=== PATIENT | female | born 1960 | race American Indian/Alaskan Native ===

== ENCOUNTER 2017-06-03 10:12 | Emergency (ER) | payer OTHER ==
[2017-06-03 10:20] VITALS: BP 171/95
--- NOTE | 2017-06-03 11:20 | Emergency Department Report ---
Upper Extremity - [facility] Chief Complaint: Extremity Injury, Upper Stated Complaint: LEFT ARM PAIN Time Seen by Provider: 06/03/17 11:02 Upper Extremity: Left Shoulder (pain to left shoulder which is chronic. Flared up 3-4 days ago.) Occurred When: 4 Days Mechanism: Unsure Severity: moderate (6-10) Symptoms: Yes Pain with Movement (left shoulder), No Deformity, No Limited Range of Movement (full range of motion to left shoulder), No Numbness, No Weakness, No Swelling, No Bruising/Ecchymosis, No Laceration or Abrasion Other History: Patient here reports that she is having left shoulder pain for 4 days. She says she has a history of chronic shoulder pain and she is supposed to be following up with her orthopedic doctor but has not had any time to follow -up. She said when she woke up this morning her pain was 6 out of 10 but now it does not hurt in its more sore. Denies any numbness or tingling into extremities. Pain worse with movement better with rest. Denies any fever or chills or any new injuries ED Review of Systems ROS: Stated complaint: LEFT ARM PAIN Other details as noted in HPI Comment: All other systems reviewed and negative Constitutional: no symptoms reported Respiratory: no symptoms reported Cardiovascular: denies: chest pain, palpitations, dyspnea on exertion, edema, syncope, paroxysmal nocturnal dyspnea Gastrointestinal: denies: abdominal pain, nausea, vomiting, diarrhea Genitourinary: denies: urgency, dysuria, frequency, hematuria, discharge Musculoskeletal: arthralgia. denies: back pain, joint swelling, myalgia Skin: denies: rash Neurological: denies: headache, numbness, paresthesias, confusion, abnormal gait , vertigo ED Past Medical Hx - Past Medical History Previous Medical History?: Yes Hx Hypertension: Yes - Surgical History Past Surgical History?: No - Family History Family history: no significant - Social History Smoking Status: Never Smoker Substance Use Type: None - Medications Home Medications: Home Medications Medication Instructions Recorded Confirmed Last Taken Type HYDROcodone/APAP 5-325 [[place] 1 each PO Q6HR PRN #14 tablet 07/28/13 Unknown Rx 5-325 mg TAB] Nitrofurantoin Forrest/M-Cryst 100 mg PO Q12HR #10 capsule 07/28/13 Unknown Rx [Macrobid CAP] traMADol [Ultram] 50 mg PO Q6HR PRN #20 tablet 06/03/17 Unknown Rx Upper Extremity Exam - Exam General: Vital signs noted. No distress. Alert and acting appropriately. This is a 57-year-old female well-nourished well-developed in no acute distress Head and Torso: No HEENT Abnormality, No Neck Tenderness, No Chest/Lungs Abnormality, No Abdominal Tenderness, No Back Tenderness Shoulder Exam: Yes Normal Range of Motion in Shoulder (No restriction in movement to all extremities.), No Shoulder Tenderness, No Clavicle Tenderness, No Shoulder Deformity, No AC Joint Tenderness Arm Exam: No Arm/Humerus Tenderness, No Arm Deformity Elbow: Yes Normal Range of Motion in Elbow, No Elbow Tenderness, No Elbow Deformity Forearm: No Forearm Tenderness, No Forearm Deformity, No Pain with Pronation, No Pain with Supination Wrist: Yes Normal ROM in Wrist, No Wrist Tenderness, No Wrist Deformity, No Snuffbox Tenderness, No Pain with Axial Thumb Compression Hand: Yes Normal ROM in Digit(s), No Hand Tenderness, No Hand Deformity, No Digit Tenderness, No Digit(s) Deformity, No Tendon Dysfunction CMS Exam: Yes Normal Distal Pulses, Yes Normal Capillary Refill, Yes Normal Distal Sensation, No Broken Skin ED Course Vital Signs 06/03/17 10:16 Temperature 98.9 F Pulse Rate 103 H Respiratory 20 Rate Blood Pressure 171/95 O2 Sat by Pulse 98 Oximetry Vital Signs 06/03/17 06/03/17 10:16 11:32 Temperature 98.9 F Pulse Rate 103 H Respiratory 20 16 Rate Blood Pressure 171/95 O2 Sat by Pulse 98 Oximetry Vital Signs 06/03/17 06/03/17 06/03/17 10:16 11:32 12:15 Temperature 98.9 F Pulse Rate 103 H 92 H Respiratory 20 16 Rate Blood Pressure 171/95 O2 Sat by Pulse 98 Oximetry - Reevaluation(s) Reevaluation #1: 06/03/17 12:59 Given Decadron 10 mg IM and Toradol 60 mg IM in emergency room. ED Medical Decision Making - Medical Decision Making ED course: The patient that she has chronic shoulder pain and will need to followed by orthopedic doctor for Evaluation and management. Patient has no deformity or limitation in movement to both shoulders. He has no erythema or effusion. No crepitus noted. She has +2 pulses in all extremities. He received Decadron 10 mg IM and Toradol 60 mg IM in emergency room relief of pain. Discharged home in stable condition with prescription for Ultram and to follow up with orthopedic doctor. Critical care attestation.: If time is entered above; I have spent that time in minutes in the direct care of this critically ill patient, excluding procedure time. ED Disposition Clinical Impression: Arthralgia of left shoulder region Disposition: - TO HOME OR SELFCARE Is pt being admited?: No Does the pt Need Aspirin: No Condition: Stable Instructions: Arthralgia (ED) Additional Instructions: follow-up with orthopedic doctor as instructed Do not drive or operate heavy machinery while taking Ultram as this medication causes drowsiness Prescriptions: traMADol [Ultram] 50 mg PO Q6HR PRN #20 tablet PRN Reason: Pain Referrals: PRIMARY CARE, [Primary Care Provider] - 3-5 Days Forms: Accompanied Note, Work/School Release Form(ED)
[2017-06-03] MEDS ORDERED: TORADOL IM ONE (11:21)
[2017-06-03] MEDS ORDERED: DECADRON IM ONE (11:21)
== END 2017-06-03 13:13 | disposition home or self-care (01) ==
LOC: ED 10:12
DX: M25.512 Pain in left shoulder (principal); G89.29 Other chronic pain; I10 Essential (primary) hypertension
CPT/HCPCS: 96372; 99282; J1100; J1885